=== PATIENT | female | born 2000 | race African-American/Black ===

== ENCOUNTER 2024-11-02 21:14 | Emergency (ER) | payer OTHER ==
[~2024-11-02] VITALS: Ht 162.6 cm; Wt 123.0 kg
[2024-11-02 22:44] VITALS: O2SAT 100
[2024-11-02 23:30] VITALS: BP 133/78; PULSE 88; RESP 18; TEMP 36.8; O2SAT 97
== END 2024-11-02 23:45 | disposition home or self-care (01) ==
LOC: ER 21:14
DX: R09.89 Other specified symptoms and signs involving the circulatory and respiratory systems (principal)
CPT/HCPCS: 99282